=== PATIENT | female | born 1990 | race Caucasian/White ===

== ENCOUNTER 2016-09-22 20:04 | Outpatient (CLI) | payer MEDICAID ==
[~2016-09-22] VITALS: Ht 170.2 cm; Wt 160.0 kg
[~2016-09-22 20:04] MED LIST: AMOX-291 PO; LEVO25TA4 PO; OMEP20TA62 PO; PREN1TAB27 PO; SERT50TA PO
[2016-09-22 20:56] LABS: PATH.CAST-FLAG NOT PRESENT; SPERM-FLAG NOT PRESENT; SRC-FLAG NOT PRESENT; XTAL-FLAG NOT PRESENT; YLC-FLAG NOT PRESENT
== END 2016-09-22 21:15 | disposition home or self-care (01) ==
LOC: LDOP 20:04
PROVIDERS: ATTEND Obstetrics & Gynecology
DX: O26.892 Other specified pregnancy related conditions, second trimester (principal); R10.9 Unspecified abdominal pain; O99.212 Obesity complicating pregnancy, second trimester; O99.282 Endocrine, nutritional and metabolic diseases complicating pregnancy, second trimester; Z3A.21 21 weeks gestation of pregnancy
CPT/HCPCS: 59025; 81001; 87086; 99211; G0463

== ENCOUNTER 2016-10-09 20:27 | Outpatient (CLI) | payer MEDICAID | END 2016-10-09 21:08 | disposition home or self-care (01) | LOC: LDOP 20:27 | PROVIDERS: ATTEND Obstetrics & Gynecology | DX: O26.892 Other specified pregnancy related conditions, second trimester (principal); O99.212 Obesity complicating pregnancy, second trimester; O99.282 Endocrine, nutritional and metabolic diseases complicating pregnancy, second trimester; R10.30 Lower abdominal pain, unspecified; E07.9 Disorder of thyroid, unspecified; Z3A.25 25 weeks gestation of pregnancy | CPT/HCPCS: 59025; 99211; G0463 ==

== ENCOUNTER 2016-11-18 15:05 | Outpatient (CLI) | payer MEDICAID | END 2016-11-18 16:58 | disposition home or self-care (01) | LOC: LDOP 15:05 | PROVIDERS: ATTEND Obstetrics & Gynecology | DX: O26.893 Other specified pregnancy related conditions, third trimester (principal); O99.213 Obesity complicating pregnancy, third trimester; O99.343 Other mental disorders complicating pregnancy, third trimester; F32.9 Major depressive disorder, single episode, unspecified; R10.9 Unspecified abdominal pain; M54.9 Dorsalgia, unspecified; Z3A.29 29 weeks gestation of pregnancy | CPT/HCPCS: 59025; 81001; 87086; 99211; G0463 ==

== ENCOUNTER 2016-11-27 09:09 | Outpatient (CLI) | payer MEDICAID ==
[~2016-11-27] VITALS: Ht 152.4 cm; Wt 154.5 kg
== END 2016-11-27 12:10 | disposition home or self-care (01) ==
LOC: LDOP 09:09
PROVIDERS: ATTEND Obstetrics & Gynecology
DX: O36.8130 Decreased fetal movements, third trimester, not applicable or unspecified (principal); O99.213 Obesity complicating pregnancy, third trimester; O99.343 Other mental disorders complicating pregnancy, third trimester; F32.9 Major depressive disorder, single episode, unspecified; Z3A.31 31 weeks gestation of pregnancy
CPT/HCPCS: 36415; 59025; 76819; 81001; 82731; 87086; 99211; G0463

== ENCOUNTER 2016-12-08 16:57 | Outpatient (CLI) | payer MEDICAID ==
[~2016-12-08] VITALS: Ht 170.2 cm; Wt 165.0 kg
[2016-12-08 17:11] VITALS: BP 116/71
== END 2016-12-08 21:25 | disposition home or self-care (01) ==
LOC: LDOP 16:57
PROVIDERS: ATTEND Obstetrics & Gynecology
DX: O42.913 Preterm premature rupture of membranes, unspecified as to length of time between rupture and onset of labor, third trimester (principal); O26.853 Spotting complicating pregnancy, third trimester; O99.213 Obesity complicating pregnancy, third trimester; O99.343 Other mental disorders complicating pregnancy, third trimester; O26.893 Other specified pregnancy related conditions, third trimester; F32.9 Major depressive disorder, single episode, unspecified; R10.9 Unspecified abdominal pain; Z3A.34 34 weeks gestation of pregnancy
CPT/HCPCS: 36415; 59025; 81003; 82731; 87086; 89060; 99211; G0463; Q0114

== ENCOUNTER 2016-12-19 14:47 | Outpatient (CLI) | payer MEDICAID ==
[~2016-12-19] VITALS: Ht 170.2 cm; Wt 166.0 kg
[2016-12-19 15:56] LABS: ASPARTATE AMINO TRANSFERASE 11 U/L (15-37); BLOOD UREA NITROGEN 6 mg/dL (7-18)
[2016-12-19] MEDS ORDERED: MAALOX/HYOSCYAMINE/LIDOCAINE 45 ML BOTTLE PO ONE (16:00)
[2016-12-19] MEDS ORDERED: PLEASE ENTER HEIGHT AND WEIGHT MC SCH (16:00)
== END 2016-12-19 17:31 | disposition home or self-care (01) ==
LOC: LDOP 14:47
PROVIDERS: ATTEND Obstetrics & Gynecology
DX: O13.3 Gestational [pregnancy-induced] hypertension without significant proteinuria, third trimester (principal); Z3A.33 33 weeks gestation of pregnancy
CPT/HCPCS: 36415; 59025; 80053; 81003; 82248; 82570; 84156; 84550; 85025; 99211; G0463

== ENCOUNTER 2016-12-31 21:46 | Outpatient (CLI) | payer MEDICAID ==
[~2016-12-31] VITALS: Ht 170.2 cm; Wt 165.4 kg
[2016-12-31 21:45] VITALS: BP 123/70
== END 2016-12-31 23:05 | disposition home or self-care (01) ==
LOC: LDOP 21:46
PROVIDERS: ATTEND Obstetrics & Gynecology
DX: O36.8130 Decreased fetal movements, third trimester, not applicable or unspecified (principal); O99.213 Obesity complicating pregnancy, third trimester; O99.343 Other mental disorders complicating pregnancy, third trimester; F32.9 Major depressive disorder, single episode, unspecified; Z3A.35 35 weeks gestation of pregnancy
CPT/HCPCS: 59025; 99211; G0463

== ENCOUNTER 2017-01-05 17:17 | Outpatient (CLI) | payer MEDICAID ==
[~2017-01-05] VITALS: Ht 170.2 cm; Wt 168.2 kg
[2017-01-05 17:30] VITALS: BP 122/62
== END 2017-01-05 18:10 | disposition home or self-care (01) ==
LOC: LDOP 17:17
PROVIDERS: ATTEND Obstetrics & Gynecology
DX: O26.893 Other specified pregnancy related conditions, third trimester (principal); O36.8130 Decreased fetal movements, third trimester, not applicable or unspecified; O99.213 Obesity complicating pregnancy, third trimester; O99.343 Other mental disorders complicating pregnancy, third trimester; R10.9 Unspecified abdominal pain; F32.9 Major depressive disorder, single episode, unspecified; Z3A.35 35 weeks gestation of pregnancy
CPT/HCPCS: 59025; 81001; 87086; 99211; G0463

== ENCOUNTER 2017-01-12 09:34 | Emergency (ER) | payer MEDICAID ==
[~2017-01-12] VITALS: Ht 170.2 cm; Wt 168.0 kg
[2017-01-12 11:01] LABS: HEMATOCRIT 39.5 % (34.6-47.8); HEMOGLOBIN 13.2 g/dL (11.7-16.4); WHITE BLOOD COUNT 10.2 x10^3/uL (3.4-10)
[2017-01-12 11:19] VITALS: BP 120/93
[2017-01-12 11:23] LABS: ASPARTATE AMINO TRANSFERASE 14 U/L (15-37); BLOOD UREA NITROGEN 8 mg/dL (7-18)
== END 2017-01-12 12:08 | disposition short-term general hospital (02) ==
LOC: ED 12:02
DX: O99.413 Diseases of the circulatory system complicating pregnancy, third trimester (principal); I49.1 Atrial premature depolarization; Z3A.37 37 weeks gestation of pregnancy
CPT/HCPCS: 36415; 80053; 85025; 93005; 99285

== ENCOUNTER 2017-01-12 11:47 | Outpatient (CLI) | payer MEDICAID ==
[~2017-01-12] VITALS: Ht 170.2 cm; Wt 168.0 kg
[2017-01-12 11:55] VITALS: BP 139/96
[2017-01-12 13:04] LABS: AMNI OBC PASS; AMNISURE NEGATIVE (NEGATIVE)
[2017-01-12 13:45] LABS: HIV 1&2 ANTIBODY SCREEN Nonreactive (Nonreactive); HIV-1 p24 ANTIGEN Nonreactive (Nonreactive)
== END 2017-01-12 13:30 | disposition home or self-care (01) ==
LOC: LDOP 11:47
PROVIDERS: ATTEND Obstetrics & Gynecology
DX: O42.92 Full-term premature rupture of membranes, unspecified as to length of time between rupture and onset of labor (principal); O99.213 Obesity complicating pregnancy, third trimester; O99.343 Other mental disorders complicating pregnancy, third trimester; F32.9 Major depressive disorder, single episode, unspecified; Z3A.37 37 weeks gestation of pregnancy
CPT/HCPCS: 36415; 59025; 84112; 86592; 86703; 86762; 86803; 86850; 86900; 87340; 87899; 99211; G0435; G0463

== ENCOUNTER 2017-01-22 21:41 | Observation (INO) | payer MEDICAID ==
[~2017-01-22] VITALS: Ht 157.5 cm; Wt 168.2 kg
[2017-01-22 21:50] VITALS: BP 145/95
[2017-01-22] MEDS ORDERED: FENTANYL PF 100 MCG/2ML ONE (22:26)
[2017-01-22] MEDS ORDERED: FENTANYL PF 100 MCG/2ML IVPush PRN (22:30)
[2017-01-22] MEDS ORDERED: LACTATED RINGERS 1,000 ML IV SCH (22:30)
[2017-01-22] MEDS: PLEASE ENTER HEIGHT AND WEIGHT MC SCH (22:30)
[2017-01-22 22:50] LABS: ASPARTATE AMINO TRANSFERASE 15 U/L (15-37); BLOOD UREA NITROGEN 11 mg/dL (7-18)
[2017-01-22 23:16] LABS: HEMATOCRIT 37.7 % (34.6-47.8); HEMOGLOBIN 12.4 g/dL (11.7-16.4); WHITE BLOOD COUNT 9.8 x10^3/uL (3.4-10)
[2017-01-23] MEDS ORDERED: MEPERIDINE/PF 100 MG/ML ONE (02:04)
[2017-01-23] MEDS ORDERED: PROMETHAZINE 25 MG/ML, 1ML ONE (02:04)
[2017-01-23] MEDS: PLEASE ENTER HEIGHT AND WEIGHT MC SCH (02:13)
[2017-01-23] MEDS ORDERED: MEPERIDINE/PF 50 MG/ML IM PRN (02:30)
[2017-01-23] MEDS ORDERED: PROMETHAZINE 25 MG/ML, 1ML IM ONE (02:30)
[2017-01-23] MEDS ORDERED: MEPERIDINE/PF 100 MG/ML IM PRN (02:58)
[2017-01-23] MEDS ORDERED: LEVO25TA4 PO (15:53)
== END 2017-01-23 02:20 | disposition home or self-care (01) ==
LOC: LDOP 21:41 → LDIP 22:21
PROVIDERS: ADMIT Obstetrics & Gynecology; ATTEND Obstetrics & Gynecology
DX: O62.9 Abnormality of forces of labor, unspecified (principal); O99.343 Other mental disorders complicating pregnancy, third trimester; F41.9 Anxiety disorder, unspecified; Z3A.39 39 weeks gestation of pregnancy
CPT/HCPCS: 36415; 59025; 76819; 80053; 81003; 82248; 82570; 84156; 84550; 85025; 87086; 89060; 96360; 96361; 96372; 99211; G0378; J2175; J2550; J7120; G0463; Q0114

== ENCOUNTER 2017-01-23 13:54 | Inpatient (IN) | payer MEDICAID ==
[~2017-01-23] VITALS: Ht 170.2 cm; Wt 176.4 kg
[2017-01-23] MEDS ORDERED: NEWBORN KIT ONE (14:26)
[2017-01-23] MEDS: LACTATED RINGERS 1,000 ML IV SCH (15:17)
[2017-01-23] MEDS ORDERED: OXYTOCIN 30U/ 0.9% NaCL 500ML 500 ML IV ONE (15:17)
[2017-01-23] MEDS ORDERED: LEVO25TA4 PO (15:53)
[2017-01-23 15:57] LABS: HEMATOCRIT 36.2 % (34.6-47.8); WHITE BLOOD COUNT 10.4 x10^3/uL (3.4-10)
[2017-01-23 16:14] LABS: ASPARTATE AMINO TRANSFERASE 12 U/L (15-37); BLOOD UREA NITROGEN 9 mg/dL (7-18); LACTATE DEHYDROGENASE 139 U/L (84-246)
[2017-01-23] MEDS ORDERED: OXYTOCIN 30U/ 0.9% NaCL 500ML 500 ML ONE (18:54)
[2017-01-23] MEDS ORDERED: OXYTOCIN 30U/ 0.9% NaCL 500ML 500 ML IV PRN (19:04)
[2017-01-23] MEDS ORDERED: ONDANSETRON 2MG/ML, 2ML IVPush PRN (19:30)
[2017-01-23] MEDS ORDERED: TERBUTALINE 1 MG/ML, 1ML IVPush PRN (19:30)
[2017-01-23] MEDS ORDERED: CALCIUM CARBONATE 500 MG TAB.CHEW PO PRN (19:30)
[2017-01-23] MEDS ORDERED: FENTANYL PF 100 MCG/2ML IV PRN (19:30)
[2017-01-23] MEDS ORDERED: LABETALOL 5MG/ML, 20ML IVPush PRN ×2 (20:30→21:30)
[2017-01-23] MEDS ORDERED: LACTATED RINGERS 1,000 ML IVBOLUS PRN (22:30)
[2017-01-24] MEDS ORDERED: LACTATED RINGERS 1,000 ML IV SCH ×3 (00:08→11:20)
[2017-01-24] MEDS ORDERED: FENTANYL/BUPIV./NS/PF 250 ML EPIDCONT SCH (00:08)
[2017-01-24] MEDS ORDERED: BUPIVACAINE/PF 0.25% ONE (00:10)
[2017-01-24] MEDS ORDERED: FENTANYL/BUPIV./NS/PF 250 ML EPIDCONT ONE (00:10)
[2017-01-24] MEDS ORDERED: EPHEDRINE 50 MG/ML, 1ML IVPush PRN (00:30)
[2017-01-24] MEDS ORDERED: NALOXONE 0.4 MG/ML, 1ML IVPush PRN (00:30)
[2017-01-24] MEDS ORDERED: LACTATED RINGERS 1,000 ML IVBOLUS PRN (00:30)
[2017-01-24] MEDS: LACTATED RINGERS 1,000 ML IV SCH ×6 (02:15→23:45)
[2017-01-24] MEDS ORDERED: D5%-LACTATED RINGERS 1,000 ML IV SCH (03:40)
[2017-01-24] MEDS ORDERED: SODIUM CITRATE/CITRIC ACID 30 ML UDC ONE (09:21)
[2017-01-24] MEDS ORDERED: METOCLOPRAMIDE 5 MG/ML, 2ML ONE ×2 (09:22→11:48)
[2017-01-24] MEDS ORDERED: OXYTOCIN 30U/ 0.9% NaCL 500ML 500 ML IV SCH (11:19)
[2017-01-24] MEDS ORDERED: SODIUM CITRATE/CITRIC ACID 30 ML UDC PO ONE (11:30)
[2017-01-24] MEDS ORDERED: LIDOCAINE/MPF 2%-EPI 1:200K, 20 ML ONE (11:30)
[2017-01-24] MEDS ORDERED: METOCLOPRAMIDE 5 MG/ML, 2ML IV ONE (11:30)
[2017-01-24] MEDS ORDERED: KETOROLAC 30 MG/1 ML ONE (11:48)
[2017-01-24] MEDS ORDERED: CEFAZOLIN 1,000 MG ONE (11:48)
[2017-01-24] MEDS ORDERED: OXYTOCIN 10 UNITS/ML, 1ML ONE (11:48)
[2017-01-24] MEDS ORDERED: METRONIDAZOLE PMX 500MG/100ML 100 ML IV ONE (13:00)
[2017-01-24] MEDS: OXYTOCIN 30U/ 0.9% NaCL 500ML 500 ML IV SCH ×2 (13:45→23:45)
[2017-01-24] MEDS ORDERED: FENTANYL PF 100 MCG/2ML ONE ×2 (13:47→15:10)
[2017-01-24] MEDS ORDERED: OXYcodone 5 MG/5 ML ORAL.SOL UDC ONE (13:48)
[2017-01-24] MEDS ORDERED: MISOPROSTOL 200 MCG TABLET PR PRN (14:00)
[2017-01-24] MEDS ORDERED: MEPERIDINE/PF 25MG/0.5ML IM PRN (14:00)
[2017-01-24] MEDS ORDERED: CALCIUM CARBONATE 500 MG TAB.CHEW PO PRN (14:00)
[2017-01-24] MEDS ORDERED: MEPERIDINE/PF 50 MG/ML IM PRN (14:00)
[2017-01-24] MEDS ORDERED: MEASLES,MUMPS&RUBELLA VACC/PF 0.5 ML SQ-VACC PRN (14:00)
[2017-01-24] MEDS ORDERED: ONDANSETRON 2MG/ML, 2ML IV PRN (14:00)
[2017-01-24] MEDS ORDERED: morphine SULFATE 10 MG/ML, 1ML IVPush PRN ×2 (14:00)
[2017-01-24] MEDS ORDERED: SIMETHICONE 80 MG CHEW TAB PO PRN (14:00)
[2017-01-24] MEDS ORDERED: OXYcodone IR 5MG TABLET PO PRN ×2 (14:00)
[2017-01-24] MEDS: FENTANYL PF 100 MCG/2ML IVPush PRN ×2 (14:06→15:11)
[2017-01-24] MEDS ORDERED: OXYcodone 5 MG/5 ML ORAL.SOL UDC PO PRN (15:00)
[2017-01-24 15:50] VITALS: BP 141/92
[2017-01-24 19:10] VITALS: BP 138/82
[2017-01-24] MEDS: KETOROLAC 30 MG/1 ML IV SCH (19:10)
[2017-01-24] MEDS: OXYcodone/APAP 5/325MG TABLET PO PRN (20:36)
[2017-01-24 20:53] LABS: HEMOGLOBIN 11.5 g/dL (11.7-16.4); WHITE BLOOD COUNT 12.3 x10^3/uL (3.4-10)
[2017-01-24] MEDS: DOCUSATE 100 MG CAPSULE PO SCH (21:00)
[2017-01-24 23:53] VITALS: BP 137/89
[2017-01-25] MEDS: KETOROLAC 30 MG/1 ML IV SCH ×4 (01:00→19:30)
[2017-01-25] MEDS: ENOXAPARIN 40 MG/0.4 ML SQ SCH (01:00)
[2017-01-25] MEDS: LACTATED RINGERS 1,000 ML IV SCH ×4 (05:45→19:45)
[2017-01-25] MEDS: PRENATAL VIT/IRON/FA 1 EACH TABLET PO SCH (08:25)
[2017-01-25] MEDS: DOCUSATE 100 MG CAPSULE PO SCH ×2 (08:25→19:53)
[2017-01-25 08:45] VITALS: BP 152/88
[2017-01-25] MEDS: OXYTOCIN 30U/ 0.9% NaCL 500ML 500 ML IV SCH ×2 (09:45→19:45)
[2017-01-25] MEDS: OXYcodone/APAP 5/325MG TABLET PO PRN ×2 (12:44→19:53)
[2017-01-25] MEDS: IBUPROFEN 600 MG TABLET PO PRN (19:53)
[2017-01-25 20:10] VITALS: BP 131/84
[2017-01-26 00:30] VITALS: BP 126/80
[2017-01-26] MEDS: ENOXAPARIN 40 MG/0.4 ML SQ SCH (01:06)
[2017-01-26] MEDS: OXYcodone/APAP 5/325MG TABLET PO PRN ×5 (01:06→21:24)
[2017-01-26] MEDS: IBUPROFEN 600 MG TABLET PO PRN ×3 (05:11→19:36)
[2017-01-26] MEDS: OXYTOCIN 30U/ 0.9% NaCL 500ML 500 ML IV SCH ×2 (05:45→15:45)
[2017-01-26] MEDS: LACTATED RINGERS 1,000 ML IV SCH ×2 (05:45→15:45)
[2017-01-26 07:45] VITALS: BP 141/92
[2017-01-26] MEDS: PRENATAL VIT/IRON/FA 1 EACH TABLET PO SCH (07:54)
[2017-01-26] MEDS: DOCUSATE 100 MG CAPSULE PO SCH ×2 (07:54→19:36)
[2017-01-26 19:30] VITALS: BP 129/78
[2017-01-26] MEDS ORDERED: ENOXAPARIN 40 MG/0.4 ML SQ SCH (21:00)
[2017-01-27] MEDS: OXYTOCIN 30U/ 0.9% NaCL 500ML 500 ML IV SCH (01:45)
[2017-01-27] MEDS: LACTATED RINGERS 1,000 ML IV SCH (01:45)
[2017-01-27] MEDS: IBUPROFEN 600 MG TABLET PO PRN ×3 (02:27→14:20)
[2017-01-27] MEDS: OXYcodone/APAP 5/325MG TABLET PO PRN ×3 (02:27→14:21)
[2017-01-27 07:15] VITALS: BP 132/89
[2017-01-27] MEDS: DOCUSATE 100 MG CAPSULE PO SCH (07:55)
[2017-01-27] MEDS: PRENATAL VIT/IRON/FA 1 EACH TABLET PO SCH (07:55)
[2017-01-27] MEDS ORDERED: OXYC-302 PO (14:06)
[2017-01-27] MEDS ORDERED: IBUP-1222 PO (14:06)
[2017-01-27] MEDS ORDERED: ENOX40SY4 SQ (14:07)
[2017-01-27] MEDS ORDERED: DOCU-131 PO (14:07)
== END 2017-01-27 15:15 | disposition home or self-care (01) | DRG 765 ==
LOC: LDIP 13:54 → 2NW 01-24 15:50
PROVIDERS: ADMIT Obstetrics & Gynecology; ATTEND Obstetrics & Gynecology
PROC: 10D00Z1 Extraction of Products of Conception, Low, Open Approach (ICD-10-PCS; principal; 2017-01-23)
DX: O13.4 Gestational [pregnancy-induced] hypertension without significant proteinuria, complicating childbirth (principal); O99.354 Diseases of the nervous system complicating childbirth; Z68.44 Body mass index [BMI] 60.0-69.9, adult; E03.9 Hypothyroidism, unspecified; E66.01 Morbid (severe) obesity due to excess calories; O76 Abnormality in fetal heart rate and rhythm complicating labor and delivery; O36.8130 Decreased fetal movements, third trimester, not applicable or unspecified; O61.9 Failed induction of labor, unspecified; O62.1 Secondary uterine inertia; O99.284 Endocrine, nutritional and metabolic diseases complicating childbirth; F32.9 Major depressive disorder, single episode, unspecified; F41.9 Anxiety disorder, unspecified; Z37.0 Single live birth; Z81.8 Family history of other mental and behavioral disorders; Z82.49 Family history of ischemic heart disease and other diseases of the circulatory system; Z83.3 Family history of diabetes mellitus; Z3A.39 39 weeks gestation of pregnancy
CPT/HCPCS: 36415; 80053; 81001; 82248; 82570; 83615; 84156; 84550; 85025; 86850; 86900; 87086; 93005; 93970; J0690; J1650; J1885; J3010; J2590; J2765; J7120; J7121